=== PATIENT | male | born 1970 | race Two or more races ===

== ENCOUNTER 2023-02-17 10:34 | Inpatient (IN) | payer OTHER ==
[~2023-02-17] VITALS: Ht 375.9 cm; Wt 88.4 kg
[2023-02-17] MEDS ORDERED: SODIUM CHLORIDE 0.9% 1,000 ML IVB ONE (11:15)
[2023-02-17] MEDS ORDERED: ONDANSETRON HCL 4 MG/2 ML VIAL IV ONE (11:15)
[2023-02-17] MEDS ORDERED: MORPHINE SULFATE 4 MG/ML SYR/VIAL IV ONE (11:15)
[2023-02-17 12:07] LABS: Basophils # (auto) 0 10 ^3/uL (0-0.2); Basophils % (auto) 0.4 % (0.0-2.0); Eosinophils # (auto) 0.2 10 ^3/uL (0-0.8); Eosinophils % (auto) 2.1 % (0.0-7.0); Hematocrit 47.2 % (41.0-53.0); Hemoglobin 15.8 g/dL (13.5-17.5); Lymphocytes # (auto) 2.6 10 ^3/uL (0.4-5.4); Lymphocytes % (auto) 34.3 % (10.0-50.0); Mean Corpuscular Hemoglobin 29.6 pg (28.0-32.0); Mean Corpuscular Hgb Conc. 33.5 g/dL (32.0-36.0); Mean Corpuscular Volume 88.3 fL (80.0-100.0); Monocytes # (auto) 0.6 10 ^3/uL (0-1.3); Monocytes % (auto) 7.9 % (0.0-12.0); Neutrophils # (auto) 4.1 10 ^3/uL (1.6-8.6); Neutrophils % (auto) 55.3 % (37.0-80.0); Nucleated Red Blood Cells % 0.1 %; Red Blood Cells 5.35 10^6/uL (4.5-5.90); Red Cell Distribution Width 13.6 % (11.8-14.3); White Blood Cell 7.4 10^3/uL (4.4-10.8)
[2023-02-17 12:14] LABS: Alanine Aminotransferase 22 U/L (7-40); Albumin 4.6 g/dL (3.2-4.8); Alkaline Phosphatase 81 U/L (46-116); Anion Gap 7.2 (5-15); Aspartate Aminotransferase 24 U/L (13-40); BUN/Creatinine Ratio 6.8 (10.0-20.0); Blood Urea Nitrogen 7 mg/dL (9-23); Calcium 9.6 mg/dL (8.5-10.1); Carbon Dioxide 24.8 mmol/L (20-30); Chloride 107 mmol/L (98-107); Glucose 103 mg/dL (74-106); Sodium 139 mmol/L (136-145); Total Protein 7.3 g/dL (5.7-8.2)
[2023-02-17 12:41] LABS: Lipase 42 U/L (12-53)
[2023-02-17 13:45] VITALS: PULSE 64; RESP 18; O2SAT 99
[2023-02-17 13:49] LABS: Urine Bacteria FEW /hpf (None Seen); Urine Blood Negative /uL (Negative); Urine Clarity Clear (Clear); Urine Color Yellow (Yellow); Urine Mucus FEW (None Seen); Urine Protein, UAD Negative (Negative); Urine Specific Gravity 1.018 (1.001-1.035); Urine Urobilinogen Normal (Negative); Urine WBC 1 /hpf (0 - 3); Urine pH 5.5 (5.0-8.0)
[2023-02-17] MEDS ORDERED: NITROGLYCERIN 0.4 MG SL TAB SL PRN (15:00)
[2023-02-17] MEDS ORDERED: MORPHINE SULFATE 4 MG/ML SYR/VIAL IV PRN (15:00)
[2023-02-17] MEDS ORDERED: MORPHINE SULFATE INJ 2 MG/ml SYRG IV PRN (15:00)
[2023-02-17] MEDS ORDERED: ONDANSETRON HCL 4 MG/2 ML VIAL IV PRN (15:00)
[2023-02-17] MEDS ORDERED: traMADol HCL 50 MG TAB PO PRN (18:15)
[2023-02-17] MEDS: KETOROLAC TROMETH 30 MG/ML 1ML VIAL IV PRN (18:33)
[2023-02-17 20:02] VITALS: PULSE 82; RESP 15; O2SAT 96
[2023-02-17] MEDS: CIPROFLOXACIN HCL 500 MG TAB PO SCH (22:14)
[2023-02-17 23:53] VITALS: BP 102/64; PULSE 85; RESP 18; TEMP 98.6; O2SAT 96; O2SAT 98
[2023-02-18 05:00] VITALS: BP 103/60; PULSE 84; RESP 18; TEMP 98.1; O2SAT 97
[2023-02-18] MEDS: KETOROLAC TROMETH 30 MG/ML 1ML VIAL IV PRN (06:24)
[2023-02-18 08:00] VITALS: O2SAT 97
[2023-02-18] MEDS: CIPROFLOXACIN HCL 500 MG TAB PO SCH (09:07)
[2023-02-18 09:37] VITALS: BP 104/60; PULSE 75; RESP 20; TEMP 98.4; O2SAT 97
[2023-02-18] MEDS ORDERED: PANTOPRAZOLE 40 MG TAB PO SCH (10:00)
[2023-02-18] MEDS ORDERED: ENOXAPARIN SOD 40 MG/0.4 ML SYRINGE SC SCH (10:00)
[2023-02-18] MEDS ORDERED: CIP500T PO (11:20)
[2023-02-18 12:42] VITALS: BP 110/64; PULSE 72; RESP 20; TEMP 98.3; O2SAT 97
== END 2023-02-18 15:55 | DRG 690 ==
LOC: EDBD 10:34 → EEVIPCON 10:34 → ER 10:34 → OVERFLOW 15:02 → WEST WING 23:18
PROVIDERS: ADMIT Nurse Practitioner Family; ATTEND Internal Medicine
DX: N39.0 Urinary tract infection, site not specified (principal); Z80.42 Family history of malignant neoplasm of prostate; M54.9 Dorsalgia, unspecified; Z76.5 Malingerer [conscious simulation]; R11.2 Nausea with vomiting, unspecified; R10.31 Right lower quadrant pain
CPT/HCPCS: 36415; 74176; 80053; 81001; 83690; 85025; 87086; 93005; 96361; 96374; 96375; 96376; G0378; J1885; J2405